=== PATIENT | male | born 1985 | race African-American/Black ===

== ENCOUNTER 2018-01-25 03:33 | Emergency (ER) | payer MEDICAID ==
[~2018-01-25] VITALS: Ht 180.3 cm; Wt 97.0 kg
[~2018-01-25 03:33] MED LIST: NEOM14CR4; VIC
[2018-01-25] MEDS ORDERED: ONDANSETRON HCL 4MG/2ML VIAL IV STA (04:06)
[2018-01-25] MEDS ORDERED: ASPIRIN 325MG TABLET PO ONE (04:15)
[2018-01-25] MEDS ORDERED: MECLIZINE 25MG TABLET PO ONE (04:15)
[2018-01-25] MEDS ORDERED: SODIUM CHLORIDE 0.9% 1000ML BAG (SEPSIS BOLUS) IV ONE (04:15)
[2018-01-25 05:15] VITALS: BP 123/78
== END 2018-01-25 05:14 | disposition home or self-care (01) ==
LOC: ER 03:33 → EDBEDREQ 04:34 → ENRESERV 04:45 → CANRESERV 04:45 → CANBEDREQ 04:50 → ER 05:14
DX: R07.2 Precordial pain (principal); F17.200 Nicotine dependence, unspecified, uncomplicated; Z79.82 Long term (current) use of aspirin; Z98.890 Other specified postprocedural states
CPT/HCPCS: 71045; 93005; 99284; J2405; J7030; Z7610; J8597